=== PATIENT | female | born 1960 | race Caucasian/White ===

== ENCOUNTER 2021-10-02 11:45 | Outpatient (CLI) | payer OTHER | END 2021-10-02 11:46 | disposition home or self-care (01) | LOC: BICMRI 11:45 | PROVIDERS: ATTEND Family Medicine | DX: M48.062 Spinal stenosis, lumbar region with neurogenic claudication (principal); M51.16 Intervertebral disc disorders with radiculopathy, lumbar region; M47.26 Other spondylosis with radiculopathy, lumbar region; M47.817 Spondylosis without myelopathy or radiculopathy, lumbosacral region; M47.815 Spondylosis without myelopathy or radiculopathy, thoracolumbar region; N28.1 Cyst of kidney, acquired; M48.07 Spinal stenosis, lumbosacral region; M25.78 Osteophyte, vertebrae | CPT/HCPCS: 72148 ==